=== PATIENT | female | born 1965 | race Caucasian/White ===

== ENCOUNTER 2017-03-31 07:20 | Emergency (ER) | payer MEDICAID, OTHER ==
[~2017-03-31] VITALS: Ht 162.6 cm; Wt 84.9 kg
[2017-03-31 07:27] VITALS: BP 160/88
--- NOTE | 2017-03-31 07:38 | NUR ---
PATIENT PRESENTS TO ED WITH C/O LT LEG PAIN x ONE WEEK. DENIES INJURY. . PT STATES THE WHOLE LT SIDE OF HER BODY IS HURTING;PT STATES SHE HAS ABDOMINAL PAIN . DENIES N/V/D; SKIN IS PINK/WARM/DRY; AAOX4 WITH EVEN AND STEADY GAIT; LUNGS CLEAR BL; HR EVEN AND REGULAR; PT DENIES ANY FEVER, CP,SOB OR COUGH AT THIS TIME; PATIENT STATES PAIN OF 9/10 AT THIS TIME; VSS; PATIENT POSITIONED FOR COMFORT; HOB ELEVATED; BEDRAILS UP X2; BED DOWN. ALL MONITORS IN PLACED.
[2017-03-31] MEDS ORDERED: KETOROLAC 60 MG/2 ML VIAL IM ONE (07:55)
--- NOTE | 2017-03-31 08:10 | NUR ---
PT VERBALIZES DECREASE OF PAIN FROM 9/10 TO 5/10;NO FACIAL GRIMMACING/MOANING NOTED;WILL CONTINUE TO MONITOR PT.
--- NOTE | 2017-03-31 08:22 | NUR ---
Patient discharged with v/s stable. Written and verbal after care instructions given and explained. Patient alert, oriented and verbalized understanding of instructions. Ambulatory with steady gait. All questions addressed prior to discharge. ID band removed. Patient advised to follow up with PMD. Rx of MOTRIN AND NORCO given. Patient educated on indication of medication including possible reaction and side effects. Opportunity to ask questions provided and answered.
[2017-03-31 08:23] VITALS: BP 160/88
== END 2017-03-31 08:22 | disposition home or self-care (01) ==
LOC: MED 07:20
DX: M79.605 Pain in left leg (principal)
CPT/HCPCS: 81002; 81025; 96372; 99283; J1885

== ENCOUNTER 2019-09-04 08:51 | Emergency (ER) | payer MEDICAID, OTHER ==
[~2019-09-04] VITALS: Ht 157.5 cm; Wt 84.1 kg
[2019-09-04 08:57] VITALS: BP 154/78
--- NOTE | 2019-09-04 09:07 | NUR ---
Patient ambulated to bed 2 with family. RN evaluating patient at bedside.
--- NOTE | 2019-09-04 09:17 | NUR ---
53/F BIB DAUGHTER C/O N/V & EPIGASTRIC PAIN RADIATING TO RUQ X LAST NIGHT. VOMITUS IS DESCRIBED TO BE YELLOW. STATES SUBJECTIVE FEVER LAST NIGHT, AFEBRILE NOW AT TRIAGE. LBM TODAY, BUT STOOL HARD, STATES FEELS CONSTIPATED. STATES SYMPTOMS STARTED AFTER DRINKING ABX MEDS FOR H. PYLORI TREATMENT. MED HX:DM,HTN
--- NOTE | 2019-09-04 09:26 | NUR ---
DR. HOOVER EVALUATING PT AT BEDSIDE.
[2019-09-04] MEDS ORDERED: NACL 0.9% 500 ML IV ONE (09:58)
[2019-09-04] MEDS ORDERED: KETOROLAC 30 MG/ML VIAL IVP ONE (10:00)
--- NOTE | 2019-09-04 10:10 | NUR ---
LAB DRAW HANDED TO CONDUIT CLEANER.
[2019-09-04 10:15] LABS: BASOPHILS % (AUTO) 0.4 % (0.0-2.0); EOSINOPHILS % (AUTO) 0.4 % (0.0-4.0); HEMATOCRIT 37.8 % (36-48); HEMOGLOBIN 12.5 g/dL (12.0-16.0); LYMPHOCYTES # (AUTO) 1.7 K/uL (2.5-16.5); LYMPHOCYTES % (AUTO) 15.1 % (20.5-51.1); MEAN CORPUSCULAR HEMOGLOBIN 26 pg (27-31); MEAN CORPUSCULAR HGB CONC 33 g/dL (33-37); MONOCYTES # (AUTO) 0.5 K/uL (0.8-1.0); MONOCYTES % (AUTO) 4.5 % (1.7-9.3); NEUTROPHILS % (AUTO) 79.6 % (42.2-75.2); PLATELET COUNT (AUTO) 204 K/uL (140-450); RED BLOOD CELL COUNT(AUTO) 4.79 MIL/uL (4.20-5.40); RED CELL DISTRIBUTION WIDTH 15.6 % (11.6-13.7); WHITE BLOOD COUNT (AUTO) 11.4 K/uL (4.8-10.8)
--- NOTE | 2019-09-04 10:15 | NUR ---
US TECH AT BEDSIDE.
[2019-09-04 10:26] LABS: ANION GAP 17.8 (8-16); CARBON DIOXIDE 26.4 mmol/L (21-32); CREATININE 0.9 mg/dL (0.6-1.3); POTASSIUM 4.2 mmol/L (3.5-5.1)
[2019-09-04 10:31] LABS: ALBUMIN 3.8 g/dL (3.4-5.0); TOTAL BILIRUBIN 0.7 mg/dL (0.0-1.0)
--- NOTE | 2019-09-04 12:15 | NUR ---
Patient discharged with v/s stable. Written and verbal after care instructions given and explained. Patient alert, oriented and verbalized understanding of instructions. Ambulatory with steady gait. All questions addressed prior to discharge. ID band removed. Patient advised to follow up with PMD. Rx of MOTRIN AND TRAMADOL given. Patient educated on indication of medication including possible reaction and side effects. Opportunity to ask questions provided and answered.
[2019-09-04 12:59] VITALS: BP 142/68
--- NOTE | 2019-09-06 12:01 | NUR ---
Late entry. Confirmed with RN that 0.9 NS at 100ml/hr dc'd at 1215
== END 2019-09-04 12:15 | disposition home or self-care (01) ==
LOC: MED 08:51
DX: R10.13 Epigastric pain (principal); E11.9 Type 2 diabetes mellitus without complications; I10 Essential (primary) hypertension
CPT/HCPCS: 36415; 76705; 80053; 81002; 81025; 83690; 85025; 96374; 99284; J1885; Q0092; J7030

== ENCOUNTER 2023-02-07 10:45 | Emergency (ER) | payer MEDICAID ==
[~2023-02-07] VITALS: Ht 157.5 cm; Wt 80.3 kg
[2023-02-07 11:01] VITALS: BP 141/80
--- NOTE | 2023-02-07 12:32 | NUR ---
UNABLE TO LOCATE FOR EKG
--- NOTE | 2023-02-07 13:05 | NUR ---
PT. AMB. TO BED WITH NO DISTRESS. STEADY GAIT
[2023-02-07] MEDS ORDERED: ACET-10509 PO (14:13)
[2023-02-07] MEDS ORDERED: LID5T TP (14:13)
[2023-02-07 15:00] VITALS: BP 149/73
--- NOTE | 2023-02-07 15:01 | NUR ---
Patient discharged with v/s stable. Written and verbal after care instructions given and explained. Patient alert, oriented and verbalized understanding of instructions. Ambulatory with steady gait. All questions addressed prior to discharge. ID band removed. Patient advised to follow up with PMD. Rx of lidoderm patch, tylenol given. Patient educated on indication of medication including possible reaction and side effects. Opportunity to ask questions provided and answered.
== END 2023-02-07 14:59 | disposition home or self-care (01) ==
LOC: MED 10:45
DX: S20.212A Contusion of left front wall of thorax, initial encounter (principal); S06.9X1A Unspecified intracranial injury with loss of consciousness of 30 minutes or less, initial encounter; S00.31XA Abrasion of nose, initial encounter; E11.9 Type 2 diabetes mellitus without complications; I10 Essential (primary) hypertension; E78.5 Hyperlipidemia, unspecified; Z79.899 Other long term (current) drug therapy; W01.198A Fall on same level from slipping, tripping and stumbling with subsequent striking against other object, initial encounter; Y92.89 Other specified places as the place of occurrence of the external cause; Y93.89 Activity, other specified; Y99.8 Other external cause status
CPT/HCPCS: 36415; 70450; 71045; 72125; 84484; 93005; 99285